=== PATIENT | male | born 1940 | race American Indian/Alaskan Native ===

== ENCOUNTER 2017-04-24 08:14 | Inpatient (IN) | payer MEDICARE, OTHER ==
[~2017-04-24] VITALS: Ht 162.6 cm; Wt 80.0 kg
[2017-04-24] MEDS ORDERED: VANCOMYCIN 1 GM (PMX) 250 ML IVPB STA (08:25)
[2017-04-24] MEDS ORDERED: SOD CHLORIDE 0.9% 1,000 ML IV STA ×2 (08:25)
[2017-04-24] MEDS ORDERED: PIPER-TAZO 3.375 GM IV (PMX) 50 ML IVPB STA (08:25)
[2017-04-24 09:05] LABS: BASOPHILS % 0.5 % (0.0-2.0); EOSINOPHILS # 0.1 10^3/ul (0.0-0.5); EOSINOPHILS % 1.1 % (0.0-7.0); HEMATOCRIT 39.8 % (42.0-52.0); HEMOGLOBIN 12.9 g/dl (14.0-18.0); LYMPHOCYTES % 15.8 % (15.0-51.0); MEAN CORPUSCULAR HEMOGLOBIN 28.3 pg (29.0-33.0); MEAN CORPUSCULAR HGB CONC 32.4 g/dl (32.0-37.0); MEAN CORPUSCULAR VOLUME 87.3 fl (82.0-101.0); MEAN PLATELET VOLUME 9.6 fl (7.4-10.4); MONOCYTE # 0.7 10^3/ul (0.3-0.9); MONOCYTES % 12.1 % (0.0-11.0); NEUTROPHIL # 4.3 10^3/ul (1.6-7.5); NEUTROPHILS % 70.2 % (39.0-77.0); PLATELET COUNT 241 10^3/UL (140-415); RED BLOOD COUNT 4.56 10^6/ul (4.70-6.10); RED CELL DISTRIBUTION WIDTH 13.3 % (11.5-14.5); WHITE BLOOD COUNT 6.1 10^3/ul (4.8-10.8)
--- NOTE | 2017-04-24 09:07 | RADRPT ---
PROCEDURE: XR Chest. CLINICAL INDICATION: Shortness of breath TECHNIQUE: Single portable view of the chest was obtained COMPARISON: No priors for comparison FINDINGS: The trachea is midline. The cardiac silhouette and pulmonary vascularity are within normal limits. T here are bilateral chronic lung changes. The lungs are clear. The costophrenic angles are sharp. IMPRESSION: 1. Bilateral chronic lung changes. No evidence of acute cardiopulmonary disease. RPTAT: EE Physician Lucía Date Time Electronically viewed and signed by Physician Lucía on 04/24/2017 09:07 JL/
[2017-04-24 09:23] LABS: ALANINE AMINOTRANSFERASE 31 IU/L (13-69); ALBUMIN 3.8 g/dl (3.3-4.9); ALBUMIN/GLOBULIN RATIO 1.15; ALKALINE PHOSPHATASE 102 IU/L (42-121); ANION GAP 15 (8-16); ASPARTATE AMINO TRANSFERASE 21 IU/L (15-46); BILIRUBIN,INDIRECT 0.2 mg/dl (0-1.1); BILIRUBIN,TOTAL 0.2 mg/dl (0.2-1.3); BLOOD UREA NITROGEN 12 mg/dl (7-20); CALCIUM 9.7 mg/dl (8.4-10.2); CARBON DIOXIDE 28 mmol/L (21-31); CHLORIDE 105 mmol/L (97-110); CREATININE 0.63 mg/dl (0.61-1.24); GLUCOSE 104 mg/dl (70-220); POTASSIUM 4.8 mmol/L (3.5-5.1); SODIUM 143 mmol/L (135-144); TOTAL PROTEIN 7.1 g/dl (6.1-8.1)
[2017-04-24 09:35] LABS: TROPONIN-I < 0.012 ng/ml (0.00-0.12)
[2017-04-24 09:46] LABS: INR 1.01; PROTIME 13.3 Sec (12.2-14.2)
[2017-04-24 09:47] LABS: PARTIAL THROMBOPLASTIN TIME 26.9 Sec (25.0-35.0)
[2017-04-24] MEDS ORDERED: ONDANSETRON 4 MG INJ IV PRN (10:00)
[2017-04-24] MEDS ORDERED: ACETAMINOPHEN 325 MG TAB PO PRN ×2 (10:00→14:30)
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
[2017-04-24] MEDS ORDERED: BENZ0.5T3 PO (10:26)
[2017-04-24] MEDS ORDERED: CHOL100062 PO (10:26)
[2017-04-24] MEDS ORDERED: ASPI-664 PO (10:26)
[2017-04-24] MEDS ORDERED: [UNRECOGNIZED DRUG - CODE] PO (10:28)
[2017-04-24] MEDS ORDERED: PALI1.5T INJ (10:30)
[2017-04-24 13:19] VITALS: PULSE 91
[2017-04-24] MEDS ORDERED: BISACODYL (EC) 5 MG TAB PO PRN (14:30)
[2017-04-24] MEDS ORDERED: DOCUSATE SODIUM 100 MG CAP PO PRN (14:30)
[2017-04-24] MEDS ORDERED: NACL 0.9% 3 ML SYG IV SCH (14:30)
[2017-04-24] MEDS ORDERED: PALIPERIDONE 234 MG INJ SCH (14:30)
[2017-04-24] MEDS ORDERED: MAGNESIUM HYDROXIDE 30ML CUP PO PRN (14:30)
[2017-04-24] MEDS ORDERED: ONDANSETRON 4 MG TAB PO PRN (14:30)
[2017-04-24] MEDS ORDERED: HYDROCODONE/APAP (5/325) TAB PO PRN (14:30)
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
[2017-04-24 15:43] VITALS: Ht 162.6 cm; Wt 80.0 kg
[2017-04-24] MEDS ORDERED: [UNRECOGNIZED DRUG - OTHER] XX SCH (16:00)
[2017-04-24] MEDS: PALIPERIDONE 234 MG XX SCH (16:00)
[2017-04-24] MEDS ORDERED: QUETIAPINE FUMARATE 200 MG XX SCH (16:00)
[2017-04-24] MEDS: [UNRECOGNIZED DRUG - OTHER] XX SCH (16:00)
[2017-04-24] MEDS: CEFAZOLIN 1 GM/50 ML (PMX) 50 ML IVPB SCH ×2 (16:00→23:27)
[2017-04-24] MEDS ORDERED: PENDING SANTYL ORDER FOR WOUND CARE XX PRN (17:00)
[2017-04-24 20:19] VITALS: BP 143/67; RESP 20
[2017-04-24] MEDS: BENZTROPINE 1 MG TAB PO SCH (22:39)
[2017-04-24] MEDS: QUETIAPINE 100 MG TAB PO SCH (22:39)
[2017-04-24] MEDS ORDERED: CEFAZOLIN 1 GM/50 ML (PMX) 50 ML IVPB ONE (23:26)
[2017-04-25 02:02] VITALS: BP 104/61; RESP 18
[2017-04-25] MEDS ORDERED: CEFAZOLIN 1 GM/50 ML (PMX) 50 ML IVPB ONE ×2 (05:51→13:26)
[2017-04-25] MEDS: CEFAZOLIN 1 GM/50 ML (PMX) 50 ML IVPB SCH ×2 (05:52→13:28)
[2017-04-25 06:15] LABS: BASOPHILS % 0.7 % (0.0-2.0); EOSINOPHILS # 0.1 10^3/ul (0.0-0.5); EOSINOPHILS % 3.2 % (0.0-7.0); HEMATOCRIT 33.1 % (42.0-52.0); LYMPHOCYTES # 1.5 10^3/ul (0.8-2.9); LYMPHOCYTES % 34.3 % (15.0-51.0); MEAN CORPUSCULAR HEMOGLOBIN 28.6 pg (29.0-33.0); MEAN CORPUSCULAR HGB CONC 33.2 g/dl (32.0-37.0); MEAN CORPUSCULAR VOLUME 86.2 fl (82.0-101.0); MEAN PLATELET VOLUME 9.5 fl (7.4-10.4); MONOCYTE # 0.7 10^3/ul (0.3-0.9); MONOCYTES % 15.8 % (0.0-11.0); NEUTROPHILS % 45.8 % (39.0-77.0); PLATELET COUNT 220 10^3/UL (140-415); RED BLOOD COUNT 3.84 10^6/ul (4.70-6.10); RED CELL DISTRIBUTION WIDTH 13.6 % (11.5-14.5); WHITE BLOOD COUNT 4.4 10^3/ul (4.8-10.8)
[2017-04-25 07:04] LABS: CALCIUM 9.1 mg/dl (8.4-10.2); CREATININE 0.64 mg/dl (0.61-1.24); POTASSIUM 3.5 mmol/L (3.5-5.1)
[2017-04-25] MEDS: [UNRECOGNIZED DRUG - OTHER] XX SCH ×3 (07:43→15:40)
[2017-04-25] MEDS: PALIPERIDONE 234 MG XX SCH ×3 (07:43→15:40)
[2017-04-25 07:59] VITALS: BP 113/72; RESP 20
[2017-04-25] MEDS: CHOLECALCIFEROL 1,000 UNIT TAB PO SCH (08:18)
[2017-04-25] MEDS: ASPIRIN (EC) 81 MG TAB PO SCH (08:18)
[2017-04-25] MEDS: ENOXAPARIN 40 MG/0.4 ML SYG SC SCH (08:22)
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
[2017-04-25] MEDS ORDERED: HYDROCODONE/APAP (10/325) TAB PO PRN (11:30)
[2017-04-25] MEDS ORDERED: morphine 4 MG/ML VIAL IV PRN (11:30)
[2017-04-25] MEDS: ZINC SULFATE 220 MG CAP PO SCH (11:35)
[2017-04-25] MEDS: MULTIVITAMINS THERAPEUTIC TAB PO SCH (11:35)
[2017-04-25] MEDS: LACTOBACILLUS RHAMNOSUS CAP PO SCH ×2 (11:35→22:05)
[2017-04-25] MEDS: ASCORBIC ACID 500 MG TAB PO SCH ×2 (11:35→22:05)
[2017-04-25 13:49] VITALS: BP 100/57; RESP 20
[2017-04-25] MEDS ORDERED: VANCOMYCIN IV PER PHARMACY XX SCH (17:00)
[2017-04-25] MEDS ORDERED: VANCOMYCIN 1.5 GM in SOD CHLORIDE 0.9% 250 ML IVPB ONE (18:00)
[2017-04-25 20:03] VITALS: BP 112/60; RESP 20
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
[2017-04-25] MEDS: BENZTROPINE 1 MG TAB PO SCH (22:04)
[2017-04-25] MEDS: QUETIAPINE 100 MG TAB PO SCH (22:05)
[2017-04-25] MEDS: NYSTATIN 30 GM POWDER BTL TOP SCH (22:05)
[2017-04-26 01:48] VITALS: BP 97/58; RESP 20
[2017-04-26 05:52] LABS: HAAIG REFLEX REFLEX FILED
[2017-04-26 06:05] LABS: BASOPHILS % 0.7 % (0.0-2.0); EOSINOPHILS # 0.2 10^3/ul (0.0-0.5); EOSINOPHILS % 2.6 % (0.0-7.0); HEMATOCRIT 35.3 % (42.0-52.0); HEMOGLOBIN 11.6 g/dl (14.0-18.0); LYMPHOCYTES # 1.8 10^3/ul (0.8-2.9); LYMPHOCYTES % 30.2 % (15.0-51.0); MEAN CORPUSCULAR HEMOGLOBIN 28.2 pg (29.0-33.0); MEAN CORPUSCULAR HGB CONC 32.9 g/dl (32.0-37.0); MEAN CORPUSCULAR VOLUME 85.7 fl (82.0-101.0); MEAN PLATELET VOLUME 9.6 fl (7.4-10.4); MONOCYTE # 0.7 10^3/ul (0.3-0.9); MONOCYTES % 12.1 % (0.0-11.0); NEUTROPHIL # 3.2 10^3/ul (1.6-7.5); NEUTROPHILS % 54.1 % (39.0-77.0); PLATELET COUNT 238 10^3/UL (140-415); RED BLOOD COUNT 4.12 10^6/ul (4.70-6.10); RED CELL DISTRIBUTION WIDTH 13.4 % (11.5-14.5); WHITE BLOOD COUNT 5.9 10^3/ul (4.8-10.8)
[2017-04-26] MEDS: VANCOMYCIN 750 MG in DEXTROSE 5% 150 ML IVPB SCH ×2 (06:07→17:35)
[2017-04-26 06:32] LABS: INR 1.01; PROTIME 13.3 Sec (12.2-14.2)
[2017-04-26 06:40] LABS: ALBUMIN 2.7 g/dl (3.3-4.9); ALBUMIN/GLOBULIN RATIO 0.93; BILIRUBIN,INDIRECT 0.3 mg/dl (0-1.1); BILIRUBIN,TOTAL 0.3 mg/dl (0.2-1.3); CALCIUM 9.3 mg/dl (8.4-10.2); CREATININE 0.71 mg/dl (0.61-1.24); POTASSIUM 4.2 mmol/L (3.5-5.1); TOTAL PROTEIN 5.6 g/dl (6.1-8.1)
[2017-04-26 07:15] LABS: THYROID STIMULATING HORMONE 2.29 MIU/L (0.465-4.680)
[2017-04-26 07:29] LABS: HEPATITIS B CORE ANTIBODY NEGATIVE (NEGATIVE)
[2017-04-26] MEDS: PALIPERIDONE 234 MG XX SCH ×3 (08:00→16:00)
[2017-04-26] MEDS: [UNRECOGNIZED DRUG - OTHER] XX SCH ×3 (08:00→16:00)
[2017-04-26 08:32] VITALS: BP 96/61; RESP 19
[2017-04-26] MEDS: ENOXAPARIN 40 MG/0.4 ML SYG SC SCH (08:39)
[2017-04-26] MEDS: ZINC SULFATE 220 MG CAP PO SCH (08:40)
[2017-04-26] MEDS: ASPIRIN (EC) 81 MG TAB PO SCH (08:40)
[2017-04-26] MEDS: CHOLECALCIFEROL 1,000 UNIT TAB PO SCH (08:40)
[2017-04-26] MEDS: MULTIVITAMINS THERAPEUTIC TAB PO SCH (08:40)
[2017-04-26] MEDS: LACTOBACILLUS RHAMNOSUS CAP PO SCH ×2 (08:40→20:42)
[2017-04-26] MEDS: NYSTATIN 30 GM POWDER BTL TOP SCH ×2 (08:41→20:43)
[2017-04-26] MEDS: ASCORBIC ACID 500 MG TAB PO SCH ×2 (08:41→20:42)
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
[2017-04-26 14:20] VITALS: BP_SYST 104; BP_SYST 85; BP_DIAS 53; BP_DIAS 63; RESP 20
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
[2017-04-26 19:50] VITALS: BP 110/64; RESP 18
[2017-04-26] MEDS: BENZTROPINE 1 MG TAB PO SCH (20:42)
[2017-04-26] MEDS: QUETIAPINE 100 MG TAB PO SCH (20:42)
[2017-04-27 02:14] VITALS: BP 109/71; RESP 18
[2017-04-27] MEDS ORDERED: VANCOMYCIN 1 GM in NS 250 ML IVPB SCH (06:30)
[2017-04-27 08:09] VITALS: BP 116/65; RESP 16
[2017-04-27] MEDS: ZINC SULFATE 220 MG CAP PO SCH (08:27)
[2017-04-27] MEDS: CHOLECALCIFEROL 1,000 UNIT TAB PO SCH (08:27)
[2017-04-27] MEDS: ASCORBIC ACID 500 MG TAB PO SCH ×2 (08:27→20:32)
[2017-04-27] MEDS: MULTIVITAMINS THERAPEUTIC TAB PO SCH (08:27)
[2017-04-27] MEDS: ASPIRIN (EC) 81 MG TAB PO SCH (08:27)
[2017-04-27] MEDS: LACTOBACILLUS RHAMNOSUS CAP PO SCH ×2 (08:28→20:32)
[2017-04-27] MEDS: ENOXAPARIN 40 MG/0.4 ML SYG SC SCH (08:31)
[2017-04-27] MEDS: NYSTATIN 30 GM POWDER BTL TOP SCH ×2 (08:33→21:51)
[2017-04-27 13:50] VITALS: BP 108/64; RESP 16
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
[2017-04-27] MEDS: QUETIAPINE 100 MG TAB PO SCH (20:31)
[2017-04-27] MEDS: BENZTROPINE 1 MG TAB PO SCH (20:32)
[2017-04-27 20:33] VITALS: BP 110/63; RESP 18
[2017-04-27] MEDS: CLINDAMYCIN 1% 30 GM GEL TOP SCH (21:50)
[2017-04-27] MEDS: CEPHALEXIN 500 MG CAP PO SCH (21:50)
[2017-04-28 01:41] VITALS: BP 101/60; RESP 18
[2017-04-28] MEDS: CEPHALEXIN 500 MG CAP PO SCH ×2 (06:18→14:45)
[2017-04-28 08:17] VITALS: BP 109/68; RESP 16
[2017-04-28] MEDS: MULTIVITAMINS THERAPEUTIC TAB PO SCH (08:46)
[2017-04-28] MEDS: CHOLECALCIFEROL 1,000 UNIT TAB PO SCH (08:46)
[2017-04-28] MEDS: ZINC SULFATE 220 MG CAP PO SCH (08:47)
[2017-04-28] MEDS: ASCORBIC ACID 500 MG TAB PO SCH (08:47)
[2017-04-28] MEDS: ASPIRIN (EC) 81 MG TAB PO SCH (08:47)
[2017-04-28] MEDS: LACTOBACILLUS RHAMNOSUS CAP PO SCH (08:47)
[2017-04-28] MEDS: NYSTATIN 30 GM POWDER BTL TOP SCH (08:48)
[2017-04-28] MEDS: CLINDAMYCIN 1% 30 GM GEL TOP SCH (08:50)
[2017-04-28] MEDS: ENOXAPARIN 40 MG/0.4 ML SYG SC SCH (08:51)
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
--- NOTE | 2017-04-28 14:43 | PDOCDIS ---
Discharge Instructions DIAGNOSIS Discharge Diagnosis cellulitis CONDITION Patient Condition: Stable HOME CARE INSTRUCTIONS: Special Diet: REGULAR DIET ACTIVITY: Activity Restrictions: No Restrictions Slowly Increase Activity Do not Drive FOLLOW UP/APPOINTMENTS Follow-up Plan appt Dr Jorge 2wks PCP 1wDELLA Melendez MD Apr 28, 2017 14:43
[2017-04-28] MEDS ORDERED: CLI30GEL TOP (14:45)
[2017-04-28] MEDS ORDERED: CEPH500C PO (14:45)
[2017-04-28 15:18] VITALS: BP 113/67; RESP 16
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
== END 2017-04-28 18:00 | DRG 603 ==
LOC: E/R 08:14 → MS2 09:44
PROVIDERS: ADMIT Internal Medicine; ATTEND Internal Medicine
DX: L03.311 Cellulitis of abdominal wall (principal); D64.9 Anemia, unspecified; F25.9 Schizoaffective disorder, unspecified; R62.7 Adult failure to thrive; Z87.891 Personal history of nicotine dependence; T21.22XD Burn of second degree of abdominal wall, subsequent encounter; X08.8XXD Exposure to other specified smoke, fire and flames, subsequent encounter
CPT/HCPCS: 36415; 71010; 80048; 80053; 80202; 83036; 83605; 84443; 84484; 85025; 85610; 85730; 86704; 86709; 86803; 87040; 87070; 87340; 93005; 96374; 96375; J0690; J1650; J2543; J3370; J7030; J7050